=== PATIENT | male | born 1985 | race Two or more races ===

== ENCOUNTER → 2017-08-04 | Outpatient (CLI) | payer OTHER ==
[2017-04-26 14:32] VITALS: BP 120/63
[~2017-08-04] MED LIST: GADOBUTROL 10 MMOL/10 ML VIAL IV ONE; INSU100C SQ; LISI40TA PO; LOVA20TA2 PO; METF-620 PO
[2017-08-04 09:14] LABS: CREATININE 0.9 mg/dL (0.7-1.3); GFR 99.1
--- NOTE | 2017-08-04 14:34 | RAD ---
MRCP AND ABDOMEN MRI STUDY WITH AND WITHOUT CONTRAST Clinical indications: Follow-up of the pancreatic duct stricture. Technique: T1 and T2 weighted MRI sequences of the abdomen was performed in the axial and coronal planes. In phase and out of phase MRI sequences were performed. Using a single shot heavily T2-weighted fast spin-echo and MIP algorithm, 3-D reconstructed MRCP was generated. Postcontrast enhanced T1-weighted MRI sequences of the abdomen were performed. A total of 10 mL of Gadavist was given intravenously. Comparison: April 23, 2017. Findings: MRI abdomen:: The liver is homogeneous in appearance. The spleen is homogeneous in appearance. No adrenal mass is evident. Bilateral renal cysts are seen which have not changed in size. Cyst within the left kidney is hemorrhagic. No hydronephrosis is seen. No focal aneurysmal dilatation of the abdominal aorta is seen. No enlarged abdominal lymphadenopathy is seen. No ascites is seen. No new pancreatic mass is evident. Enhancement of the pancreas is unchanged from the previous study. No peripancreatic soft tissue edema or free fluid or pseudocyst is seen. MRCP: No abnormal dilatation of the intrahepatic or extrahepatic biliary tree is seen. No filling defects are seen within the extrahepatic biliary tree. No stricture of the extrahepatic biliary tree is seen. Again seen is dilatation of the distal aspect of the main pancreatic duct within the tail of the pancreas. The main pancreatic duct demonstrates a more normal caliber within the body. Therefore, there is a caliber change. This is unchanged. Impression: Stable bilateral renal cysts. Stable dilatation of the main pancreatic duct within the tail of the pancreas. No new pancreatic lesion is seen. Recommend continued abdomen MRI study follow-up in one year.
== END | disposition home or self-care (01) ==
LOC: MRI 08:37
PROVIDERS: ATTEND Family Medicine
DX: N28.1 Cyst of kidney, acquired (principal)
CPT/HCPCS: 36415; 74182; 82565; 84520; A9585

== ENCOUNTER → 2020-10-10 | Outpatient (CLI) | payer OTHER ==
[2017-04-26 14:32] VITALS: BP 120/63
[~2020-10-10] MED LIST changes: -GADOBUTROL 10 MMOL/10 ML VIAL IV ONE; +IOHEXOL 240 MG/ML 50ML VIAL. PO ONE; +IOHEXOL 300 MG/ML 100ML VIAL. IV ONE; +LISI-130 PO; -LISI40TA PO; -METF-620 PO; +METF10007 PO
--- NOTE | 2020-10-10 16:00 | RAD ---
CT of the abdomen with IV and oral contrast 10/10/2020 INDICATION: Follow-up pancreatic pseudocyst COMPARISON STUDY: CT of the abdomen and pelvis April 22, 2017 TECHNIQUE: Multidetector CT imaging of the abdomen was performed before and after the administration of IV contrast. FINDINGS: Bilateral lung bases are clear. The superior most aspect of the liver is not included on no ncontrast enhanced or arterial phase imaging. Adrenal glands are unremarkable. Spleen is unremarkable. Simple cyst is seen in the superior left kid shalonda, unchanged. Left kidney is otherwise unremarkable. There are 2 partially exophytic lesions arisin g from the superior pole the left kidney the larger measuring 1.9 cm in maximal diameter and the smal ler may which is immediately medial to this measures 1 cm in diameter. No significant enhancement is identified on arterial or delayed phase imaging. No interval growth is identified. This most likely r epresents benign process such as a hemorrhagic cyst. There is a small amount of calcification the pancreatic head. Mild irregularity of the pancreatic dis todd body and tail are seen with subtle areas of likely reflecting mild dilatation of the pancreatic d uct as seen on prior MRI exam. This somewhat poorly defined on today's study. Findings are felt to li jessica reflect changes of chronic pancreatitis. No acute osseous changes are identified. Partially visu alized bowel demonstrates no obstruction or other acute abnormality. IMPRESSION: 1. Changes of chronic pancreatitis as described, similar to comparison imaging studies. 2. Probable hemorrhagic cyst in the apical right kidney, similar to comparison exams 3. No acute abnormality is identified CT DOSING PQRS STATEMENT: One or more of the following individualized dose reduction techniques were utilized for this examinat ion: 1. Automated exposure control 2. Adjustment of the mA and/or kV according to patient size 3. Use of iterative reconstruction technique Electronically signed by: Ramirez Cole MD (10/10/2020 3:58 PM) [id number]
== END ==
LOC: CT 09:12
PROVIDERS: ATTEND Family Medicine
DX: K86.1 Other chronic pancreatitis (principal)
CPT/HCPCS: 74177; Q9966; Q9967

== ENCOUNTER → 2021-02-11 | Outpatient (CLI) | payer OTHER ==
[2017-04-26 14:32] VITALS: BP 120/63
[~2021-02-11] MED LIST changes: +GADOTERATE 5 MMOL/10ML VIAL. IVP ONE; -IOHEXOL 240 MG/ML 50ML VIAL. PO ONE; -IOHEXOL 300 MG/ML 100ML VIAL. IV ONE
--- NOTE | 2021-02-11 16:52 | RAD ---
Examination: MRI and MRCP abdomen without and with IV contrast. INDICATION: Low density lesion of the pancreatic tail. Further evaluation. History of chronic pancrea titis and pancreatic pseudocyst. TECHNIQUE: Multiplanar multisequence and MRCP and MRI of the abdomen performed without and with IV co ntrast. 3-D coronal heavily T2-weighted MRCP images were performed. COMPARISON: MRI dated 08/04/[address] dated 10/10/2020. FINDINGS: Redemonstrated atrophic changes of the pancreatic tail with loss of normal bright T1 signal intensity and hypoenhancement. The involved area measures approximately 4.7 x 2.0 cm, essentially unchanged si nce July 2017. There is a 0.8 cm nonenhancing cystic lesion in the distal pancreatic body/tail, e ssentially unchanged since prior exam and most likely representing pancreatic pseudocyst. Mild fat in filtration in the pancreatic head. No main pancreatic ductal dilation. Normal size and morphology of the liver with homogeneous enhancement. No significant steatosis or iro n deposition. No suspicious focal hepatic lesion. Increased T1 signal intensity within the gallbladde r, may represent biliary sludge versus concentrated bile. No biliary ductal dilation. Unremarkable spleen. No adrenal nodule. Minimal increasing size of complex hemorrhagic/proteinaceous cyst in the upper pole left kidney, measures 1.9 cm. Additional, there is a 1.9 cm T2 isointense lesi on exophytic from the upper pole right kidney appears mildly bright on T1-weighted images without sig nificant enhancement, minimally increasing size since 2017 which measures 1.5 cm. This lesion is most consistent with complex hemorrhagic/proteinaceous cyst. Normal caliber abdominal aorta. Mesenteric arteries and portal vein are patent. No ascites. No bowel dilation. Normal appendix. No lymphadenopathy in the abdomen by size criteria. Unremarkable visualize d lung bases. No suspicious osseous lesion or acute process. IMPRESSION: 1. Similar appearance of the atrophic pancreatic tail with loss of normal bright T1 signal intensity and hypoenhancement, favors to represent a sequelae of focal chronic pancreatitis. Neoplastic process considers less likely. Consider correlation with CA-19-9 and continued attention on short-term follo w-up examination. 2. Stable subcentimeter cystic lesion in the distal pancreatic body/tail, likely representing pseudoc yst. 3. Redemonstrated complex hemorrhagic/proteinaceous bilateral renal cysts. 4. Other chronic/incidental findings, as described above. Electronically signed by: Taniya Simeon MD (02/11/2021 4:49 PM) [id number]
== END ==
LOC: MRI 08:10
PROVIDERS: ATTEND Physician Assistant Medical
DX: K86.3 Pseudocyst of pancreas (principal); K86.1 Other chronic pancreatitis; N28.9 Disorder of kidney and ureter, unspecified; K86.89 Other specified diseases of pancreas; N28.1 Cyst of kidney, acquired
CPT/HCPCS: 74182; A9575